=== PATIENT | female | born 1975 | race Two or more races ===

== ENCOUNTER 2024-01-31 23:50 | Emergency (ER) | payer MEDICAID ==
[~2024-01-31] VITALS: Ht 154.9 cm; Wt 60.0 kg
[2024-01-31 23:57] VITALS: BP 126/91; PULSE 88; RESP 20; TEMP 98.9; O2SAT 98
[2024-02-01 00:33] LABS: BASOPHILS % (AUTO) 0.9 % (0.0-2.0); EOSINOPHILS % (AUTO) 5.5 % (1.0-6.0); HEMATOCRIT 40.6 % (36-46); HEMOGLOBIN 13.4 g/dL (12.0-16.0); LYMPHOCYTES # (AUTO) 2.5 K/uL (1.0-4.8); LYMPHOCYTES % (AUTO) 27.1 % (22.0-44.0); MEAN CORPUSCULAR HEMOGLOBIN 28.7 pg (26.0-34.0); MEAN CORPUSCULAR HGB CONC 32.9 G/dL (31.0-37.0); MEAN CORPUSCULAR VOLUME 87 fL (80-100); MONOCYTES # (AUTO) 0.7 K/uL (0.1-1.0); MONOCYTES % (AUTO) 7.7 % (2.0-9.0); NEUTROPHILS # (AUTO) 5.4 K/uL (1.8-7.7); NEUTROPHILS % (AUTO) 58.8 % (40.0-70.0); PLATELET COUNT (AUTO) 353 K/uL (150-450); RED BLOOD CELL COUNT(AUTO) 4.65 MIL/uL (4.00-5.20); RED CELL DISTRIBUTION WIDTH 13.5 % (11.5-14.5); WHITE BLOOD COUNT (AUTO) 9.2 K/uL (4.5-11.0)
[2024-02-01 00:42] LABS: ANION GAP 10 mmol/L (8-16); CALCIUM, TOTAL 9.2 mg/dL (8.8-10.5); CARBON DIOXIDE 26 mmol/L (22-29); CHLORIDE 103 mmol/L (98-107); CREATININE 0.81 mg/dL (0.60-1.30); GLOMERULAR FILTR. RATE CALC > 60 mL/min (>60); GLUCOSE,RANDOM 111 mg/dL (70-110); LIPASE 29 U/L (16-77); POTASSIUM 4.4 mmol/L (3.5-5.1); SODIUM SERUM 139 mmol/L (136-145); UREA NITROGEN, BLOOD 12 mg/dL (7-18)
[2024-02-01] MEDS: LIDOCAINE/PF 1% 2 ML VIAL IM ONE (02:05)
[2024-02-01] MEDS: CefTRIAXone SODIUM 1 GM/VIAL IM ONE (02:06)
[2024-02-01] MEDS: HYDROmorphone HCL 2 MG/ML SYRINGE IM ONE (02:06)
[2024-02-01] MEDS: LIDOCAINE 1% 10 ML VIAL SQ ONE (03:02)
[2024-02-01] MEDS ORDERED: HYDR-4062 PO (03:59)
[2024-02-01] MEDS ORDERED: DOXY-354 PO (03:59)
[2024-02-01] MEDS ORDERED: CEPH-558 PO (03:59)
[2024-02-01] MEDS ORDERED: IBUP-1554 PO (04:03)
== END 2024-02-01 04:17 | disposition home or self-care (01) ==
LOC: EDBD → EMS 23:58
DX: L02.31 Cutaneous abscess of buttock (principal); D25.9 Leiomyoma of uterus, unspecified
CPT/HCPCS: 99285; 80048; 83690; 85025; 36415; 10061; 74176; 96372; J0696; J1171; J3490 ×2

== ENCOUNTER 2024-02-03 08:02 | Emergency (ER) | payer MEDICAID ==
[~2024-02-03] VITALS: Ht 162.6 cm; Wt 67.0 kg
[~2024-02-03 08:02] MED LIST: CEPH-558 PO; DOXY-354 PO; HYDR-4062 PO; IBUP-1554 PO
[2024-02-03 08:06] VITALS: BP 117/75; PULSE 77; RESP 18; TEMP 99; O2SAT 96
== END 2024-02-03 08:53 | disposition home or self-care (01) ==
LOC: EDBD → EMS 08:02
DX: L02.31 Cutaneous abscess of buttock (principal)
CPT/HCPCS: 99282; Z7502

== ENCOUNTER 2024-02-05 07:26 | Emergency (ER) | payer MEDICAID ==
[~2024-02-05] VITALS: Ht 162.6 cm; Wt 60.0 kg
[2024-02-05 07:30] VITALS: BP 117/75; PULSE 79; RESP 18; TEMP 99.4; O2SAT 98
== END 2024-02-05 08:17 | disposition home or self-care (01) ==
LOC: EMS 07:26
DX: L02.31 Cutaneous abscess of buttock (principal)
CPT/HCPCS: 99281; Z7502

== ENCOUNTER 2024-03-07 08:58 | Emergency (ER) | payer MEDICAID ==
[~2024-03-07] VITALS: Ht 152.4 cm; Wt 60.0 kg
[2024-03-07 09:02] VITALS: BP 110/84; PULSE 84; RESP 18; TEMP 98.6; O2SAT 99
[2024-03-07] MEDS: SULFAMETHOX/TRIMETH DS 800-160 MG/TABLET PO ONE (09:42)
[2024-03-07] MEDS: CEPHALEXIN MONOHYDRATE 500 MG CAPSULE PO ONE (09:42)
[2024-03-07] MEDS ORDERED: CEPH-558 PO (09:57)
[2024-03-07] MEDS ORDERED: SULF-261 PO (09:57)
== END 2024-03-07 10:38 | disposition home or self-care (01) ==
LOC: EMS 08:58
DX: L03.317 Cellulitis of buttock (principal)
CPT/HCPCS: 99283